=== PATIENT | female | born 1995 ===

== ENCOUNTER 2024-09-07 17:44 | Emergency (ER) | payer SELFPAY ==
--- NOTE | ~2024-09-07 | US_ITS ---
EXAMINATION: US OB <= 14 weeks fetus DATE: 09/07/2024 20:25 [employer] INDICATION: Vaginal bleeding COMPARISON: 05/26/2024 TECHNIQUE: Real-time transabdominal obstetric ultrasound. FINDINGS: 5 para 4 Estimated date of delivery by last menstrual period is 04/14/2025 The uterus measures 9.9 x 6.8 x 7.1 cm. A gestational sac is identified within the uterus. A pole is identified, with a crown-rump length that measures 2.2 cm, corresponding to an approx imate gestational age of 8 weeks and 6 days. cardiac activity is identified at a rate of 173 bpm. The right ovary measures 2.1 x 1.7 x 2.6 cm. The left ovary measures 2.6 x 2.4 x 2.3 cm. Estimated date of delivery by ultrasound is 04/13/2025 IMPRESSION: Single intrauterine gestation with an approximate gestational age of 8 weeks and 6 days, with c ardiac activity identified. No bleeding source is identified. No subchorionic hemorrhage on the submitted images. Reviewed, dictated and finalized at location A. [employer] IMPRESSION: Single intrauterine gestation with an approximate gestational age of 8 weeks an d 6 days, with cardiac activity identified. No bleeding source is identified. No subchorionic hemorrhage on the submitted images.
[2024-09-07 17:55] VITALS: BP 123/78; PULSE 71; RESP 18; TEMP 36.3; O2SAT 100
--- NOTE | 2024-09-07 19:47 | ED_ITS ---
HPI - General Adult General Chief complaint: Vaginal Bleeding Stated complaint: preg with bleeding Time Seen by Provider: 09/07/24 19:21 History of Present Illness HPI narrative: This is a 29-year-old female approximately 8 weeks gestation presenting vaginal spotting. She has been spotting for the last 3 days. She has also had some crampy lower left abdominal pain. She was sent by her OBGYN clinic to be evaluated for miscarriage/ectopic. Related Data Allergies Allergy/AdvReac Type Severity Reaction Status Date / Time No Known Allergies Allergy Verified 09/07/24 17:58 Exam Narrative: APPEARANCE: No apparent distress. Head: atraumatic. EYES: EOMI, NOSE: Atraumatic NECK: Trachea midline RESPIRATORY: No increased rate of breathing, CTAB CARDIOVASCULAR: RRR, soft nontender ABDOMINAL: Soft nontender guarding rebound MUSCULOSKELETAl: No obvious deformities NEURO: Alert. Moving 4/4 extremities SKIN:: Warm, dry. Normal color PSYCHIATRIC: Normal affect Course Vital Signs Vital signs: Vital Signs Temperature 97.3 F L 09/07/24 17:55 Pulse Rate 71 09/07/24 17:55 Respiratory Rate 18 09/07/24 17:55 Blood Pressure 123/78 09/07/24 17:55 Pulse Oximetry 100 09/07/24 17:55 Oxygen Delivery Room Air 09/07/24 17:55 Temperature 97.3 F L 09/07/24 17:55 Pulse Rate 71 09/07/24 17:55 Respiratory Rate 18 09/07/24 17:55 Blood Pressure 123/78 09/07/24 17:55 Pulse Oximetry 100 09/07/24 17:55 Oxygen Delivery Room Air 09/07/24 17:55 Medical Decision Making [facility] Narrative Medical decision making narrative: -Course: 29-year-old female presenting with spotting . Ultrasound showed a intrauterine uterine fetus at approximately 8 weeks gestation. heart rate 173. No subchorionic hemorrhage. Patient's blood type is O- positive. Her urine had 11-20 white blood cells and +2 leuk esterase and 1+ bacteria. She will be started on Keflex. Pelvic exam showed a friable cervix with some mucus at the cervical os. Cultures for gonorrhea chlamydia Trichomonas which were negative. Patient will be discharged to follow-up with her OBGYN. Given return precautions for bleeding. -DDX includes but is not limited to: Ectopic , miscarriage, threatened miscarriage, and STD -Independent interpretation of studies: Labs and imaging reviewed -Shared decision making / Disposition:discharged. Vital Signs Vital Signs: Vital Signs Temperature 97.3 F L 09/07/24 17:55 Pulse Rate 71 09/07/24 17:55 Respiratory Rate 18 09/07/24 17:55 Blood Pressure 123/78 09/07/24 17:55 Pulse Oximetry 100 09/07/24 17:55 Oxygen Delivery Room Air 09/07/24 17:55 Temperature 97.3 F L 09/07/24 17:55 Pulse Rate 71 09/07/24 17:55 Respiratory Rate 18 09/07/24 17:55 Blood Pressure 123/78 09/07/24 17:55 Pulse Oximetry 100 09/07/24 17:55 Oxygen Delivery Room Air 09/07/24 17:55 Discharge Plan Discharge Clinical Impression: Threatened Patient Disposition: Home, Self-Care Condition: Stable Instructions: Antibiotic Form, Threatened Miscarriage (ED) Additional Instructions: You were seen in the emergency department for bleeding in . Your ultrasound showed a live intrauterine fetus. Your STD testing was negative. Pl ease complete course of antibiotics for possible UTI. 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 Return if you develop severe vaginal bleeding. La atendieron en el departamento de emergencias por sangrado anibal el embarazo. [place] ecograf?a mostr? un feto intrauterino vivo. [place] prueba de ETS fue negativa. Complete el tratamiento con antibi?ticos por tootie posible infecci?n urinaria. Realice tootie visita de seguimiento con [place] ginec?logo en tootie semana. Regrese si presenta sangrado vaginal intenso. Patient Language: Sammarinese Prescriptions: New cephalexin 500 mg capsule 500 mg PO Q12H Qty: 10 0RF Follow-up/Referrals: PHYSICIAN,PATIENT ACCOUNT ANALYST [Primary Care Provider] -
[2024-09-07 19:48] VITALS: BP 124/72; PULSE 80; RESP 16; O2SAT 100
[2024-09-07 20:02] LABS: Basophils Percent Auto 0.2 % (0.2-1.2); Eosinophils Absolute Auto 0.2 K/mm3 (0-0.3); Eosinophils Percent Auto 1.8 % (0-4.4); Hematocrit 43.6 % (37.0-47.0); Hemoglobin 14.5 g/dL (12.0-15.0); Immature Granulocyte Absolute 0.04 K/mm3 (0.00-0.031); Immature Granulocyte Percent A 0.3 % (0-0.5); Lymphocytes Absolute Auto 2.87 K/mm3 (0.9-3.2); Lymphocytes Percent Auto 24.2 % (18.3-44.2); Mean Corpuscular HGB Conc 33.3 g/dl (32-36); Mean Corpuscular Hemoglobin 29.2 pg (26-34); Mean Corpuscular Volume 87.9 fl (80-100); Mean Platelet Volume 9.4 fl (7.4-10.4); Monocytes Absolute Auto 0.6 K/mm3 (0.1-0.6); Monocytes Percent Auto 4.7 % (2.6-8.5); Neutrophils Absolute Auto 8.2 K/mm3 (1.3-6.7); Neutrophils Percent Auto 68.8 % (45.5-73.1); Platelet Count Result 376 k/mm3 (150-375); Red Blood Count 4.96 M/mm3 (4.2-5.4); Red Cell Distribution Width 13.2 % (11.5-14.5); White Blood Count 11.9 K/mm3 (4.5-10.0)
[2024-09-07 20:09] LABS: Add Urine Microscopic? YES; Appearance Urine Clear (Clear); Bacteria Urine 1+ /hpf; Bilirubin Urine Negative (Negative); Blood Urine Trace (Negative); Color Urine Yellow (Yellow); Glucose Urine UA Negative (Negative); Ketones Urine Negative (Negative); Leukocyte Esterase Ur 2+ LEU/UL (Negative); Nitrate Urine Negative (Negative); Non Pathogenic Casts 0-2; Protein Urine Negative (Negative); RBC Urine 0-2 /hpf (0-2); Specific Grav Ur 1.011 (1.001-1.035); Squamous Epithelial Cell Urine Occasional /hpf (Few); Urobilinogen Urine 0.2 mg/dL (<2.0); pH Urine 6.5 (5.0-9.0)
[2024-09-07 20:13] LABS: Alanine Aminotransferase 24 U/L (6-35); Albumin Level 4.3 g/dL (3.5-5.1); Alkaline Phosphatase 76 U/L (38-126); Anion Gap 11 mmol/L (4-12); Aspartate Amino Transferase 21 U/L (14-36); Bilirubin,Total 0.7 mg/dL (0.2-1.3); Blood Urea Nitrogen 7 mg/dL (7-17); Calcium 9.1 mg/dL (8.4-10.2); Carbon Dioxide 23 mmol/L (22-30); Chloride 101 mmol/L (98-107); Estimated CRCL calculation 160 ml/min; Estimated Glomerular Filt Rate > 60; Glucose 85 mg/dL (65-110); Sodium 135 mmol/L (137-145)
[2024-09-07 20:18] LABS: Prothrombin Time 13.6 Seconds (11.1-14.7)
[2024-09-07 20:19] LABS: Partial Thromboplastin Time 28.4 Seconds (22.3-36.8)
--- NOTE | 2024-09-07 22:46 | PC.NURSE ---
Lab called for updated. Per lab, 38 minutes until all labs will be resulted. Md Rivero notified.
[2024-09-07 23:00] LABS: Trichomonas Vag PCR NOT DETECTED (NOT DETECTE)
[2024-09-07 23:06] VITALS: BP 120/63; PULSE 76; RESP 16; TEMP 36.7; O2SAT 98
[2024-09-07 23:23] LABS: Chlamydia trachomatis NOT DETECTED (NOT DETECTE); Neisseria gonorrhoeae PCR NOT DETECTED (NOT DETECTE)
[2024-09-08 01:05] VITALS: BP 137/88; PULSE 66; RESP 17; TEMP 36.7; O2SAT 99
== END 2024-09-08 01:06 | disposition home or self-care (01) ==
PROVIDERS: Emergency Provider Emergency Medicine
DX: O20.0 Threatened abortion (principal); Z3A.08 8 weeks gestation of pregnancy
CPT/HCPCS: 36415; 76801; 80053; 81001; 84702; 85025; 85461; 85610; 85730; 86850; 86900; 86901; 87086; 87491; 87591; 87661; 99284